=== PATIENT | male | born 1985 | race Caucasian/White ===

== ENCOUNTER 2025-01-06 12:26 | Emergency (ER) | payer OTHER ==
[~2025-01-06] VITALS: Ht 167.6 cm; Wt 120.0 kg
[2025-01-06 12:41] VITALS: BP 128/96; PULSE 66; RESP 18; TEMP 97.5; O2SAT 98
[2025-01-06] MEDS: AZITHROMYCIN 500 MG TABLET PO ONE (15:25)
[2025-01-06] MEDS: CefTRIAXone SODIUM 1 GM/VIAL IM ONE (15:26)
[2025-01-06] MEDS: LIDOCAINE/PF 1% 2 ML VIAL IM ONE (15:26)
[2025-01-06] MEDS: PENICILLIN G BENZATHINE LA 2,400,000 UNITS/4 ML SYRINGE IM ONE (16:51)
[2025-01-07 08:07] LABS: TREPONEMA PALLIDUM AB -TPPA Reactive (Non Reactive)
== END 2025-01-06 17:25 ==
LOC: EMS 12:42
DX: A51.9 Early syphilis, unspecified (principal)
CPT/HCPCS: 99284; 86780; 86593; 86592; 82962; 36415; 96372; J0561; J0456; J0696; J3490